=== PATIENT | male | born 1940 | race Caucasian/White ===

== ENCOUNTER → 2017-09-02 09:28 | Outpatient (CLI) | payer MEDICARE, OTHER, SELFPAY ==
--- NOTE | 2017-09-02 09:38 | XR_ITS ---
XR tibia fibula LT 2V CLINICAL INDICATION: ITS.REASON: LEFT LEG INJURY WITH PAIN/SWELLING ORDERING PHYSICIAN: Zain Whitman PATIENT AGE: 76 years Comparison: None FINDINGS: No fracture or dislocation. Surgical clips present along the proximal posterior aspect of the leg. IMPRESSION: No acute finding
== END ==
PROVIDERS: PCP Internal Medicine; Visit Provider Internal Medicine
DX: M79.605 Pain in left leg (principal)
CPT/HCPCS: 73590

== ENCOUNTER → 2021-02-18 13:37 | Outpatient (CLI) | payer MEDICARE, OTHER, SELFPAY ==
[2021-02-18 13:56] LABS: Basophils % 0.5 % (0.1-2.0); Eosinophils # 0.2 K/mm3 (0.0-0.4); Eosinophils % 3.2 % (0.1-12.0); Hematocrit 45.7 % (42.0-52.0); Hemoglobin 15.4 g/dL (14.1-18.0); Lymphocytes # 1.9 K/mm3 (0.7-4.5); Lymphocytes % 26.9 % (10-50); Mean Corpuscular HGB Conc 33.7 g/dL (31.8-35.4); Mean Corpuscular Hemoglobin 31.4 pg (27.0-31.2); Mean Corpuscular Volume 93.2 fl (80-94); Mean Platelet Volume 10.1 fl (7.4-10.4); Monocytes # 0.6 K/mm3 (0.1-1.0); Monocytes % 8.8 % (1.7-9.3); Neutrophils # 4.3 K/mm3 (1.8-7.8); Neutrophils % 60.6 % (37.0-80.0); Platelet Count 242 K/mm3 (142-424); Red Blood Count 4.91 M/mm3 (4.60-6.20); Red Cell Distribution Width 13.6 % (11.5-17.5)
[2021-02-18 15:46] LABS: Alanine Aminotransferase 20 U/L (12-78); Albumin Level 3.8 g/dl (3.5-5.0); Albumin/Globulin Ratio 1.5 (1.1-1.8); Alkaline Phosphatase 50 U/L (38-126); Anion Gap 12.3 mEq/L (5-15); Aspartate Amino Transferase 30 U/L (17-59); Bilirubin,Total 0.6 mg/dl (0.2-1.3); Blood Urea Nitrogen 13 mg/dl (9-20); Calcium 8.8 mg/dl (8.4-10.2); Carbon Dioxide 29 mmol/L (22.0-30.0); Chloride 104 mmol/L (98-107); Chol/HDL Ratio 2.8 (1-3.5); Cholesterol 127 mg/dl (140-200); Estimated Glomerular Filt Rate 93 ml/min (>60); GFR (African American) 113 ML/MIN (>60); Globulin 2.6 g/dL (1.3-3.2); Glucose 104 mg/dl (74-100); HDL Cholesterol 46 mg/dl (40-60); Potassium 4.3 mmoL/L (3.5-5.1); Sodium 141 mmol/L (136-145); Total Protein,Serum 6.4 g/dl (6.3-8.2); Triglycerides 133 mg/dl (30-150); Uric Acid 4.6 mg/dl (3.5-8.5); VLDL Cholesterol 27 mg/dL (0-40)
[2021-02-18 15:57] LABS: Direct LDL Cholesterol 60.41 mg/dL (100-129)
[2021-02-18 16:13] LABS: Prostate Specific Ag Screen < 0.1 ng/ml (0.0-4.0)
== END ==
PROVIDERS: Visit Provider Internal Medicine
DX: I25.10 Atherosclerotic heart disease of native coronary artery without angina pectoris (principal); I10 Essential (primary) hypertension; E78.5 Hyperlipidemia, unspecified; Z87.39 Personal history of other diseases of the musculoskeletal system and connective tissue; Z12.5 Encounter for screening for malignant neoplasm of prostate
CPT/HCPCS: 80053; 80061; 84550; 85025; G0103

== ENCOUNTER → 2021-08-18 14:56 | Outpatient (CLI) | payer MEDICARE, OTHER, SELFPAY ==
[2021-08-18 16:06] LABS: Chloride 104 mmol/L (98-107)
[2021-08-18 16:07] LABS: Potassium 4.3 mmoL/L (3.5-5.1); Sodium 139 mmol/L (136-145)
[2021-08-18 16:09] LABS: Alanine Aminotransferase 20 U/L (12-78); Alkaline Phosphatase 52 U/L (38-126); Aspartate Amino Transferase 31 U/L (17-59); Bilirubin,Total 0.9 mg/dl (0.2-1.3); Blood Urea Nitrogen 15 mg/dl (9-20); Estimated Glomerular Filt Rate 93 ml/min (>60); GFR (African American) 113 ML/MIN (>60)
[2021-08-18 16:10] LABS: Albumin Level 3.6 g/dl (3.5-5.0); Albumin/Globulin Ratio 1.3 (1.1-1.8); Anion Gap 11.3 mEq/L (5-15); Calcium 9.2 mg/dl (8.4-10.2); Carbon Dioxide 28 mmol/L (22.0-30.0); Chol/HDL Ratio 2.9 (1-3.5); Cholesterol 129 mg/dl (140-200); Globulin 2.7 g/dL (1.3-3.2); Glucose 128 mg/dl (74-100); HDL Cholesterol 45 mg/dl (40-60); Total Protein,Serum 6.3 g/dl (6.3-8.2); Triglycerides 118 mg/dl (30-150); VLDL Cholesterol 24 mg/dL (0-40)
[2021-08-18 16:21] LABS: Direct LDL Cholesterol 57.19 mg/dL (100-129)
[2021-08-18 17:28] LABS: Prostate Specific Ag Screen < 0.1 ng/ml (0.0-4.0)
== END ==
PROVIDERS: PCP Internal Medicine; Visit Provider Internal Medicine
DX: I10 Essential (primary) hypertension (principal); E78.5 Hyperlipidemia, unspecified; Z85.46 Personal history of malignant neoplasm of prostate; Z87.39 Personal history of other diseases of the musculoskeletal system and connective tissue; Z12.5 Encounter for screening for malignant neoplasm of prostate
CPT/HCPCS: 80053; 80061; 84550; G0103

== ENCOUNTER → 2022-02-19 13:21 | Outpatient (CLI) | payer MEDICARE, OTHER, SELFPAY ==
[2022-02-19 14:20] LABS: Basophils % 0.4 % (0.1-2.0); Eosinophils # 0.1 K/mm3 (0.0-0.4); Eosinophils % 2.2 % (0.1-12.0); Hematocrit 46.4 % (42.0-52.0); Hemoglobin 15.2 g/dL (14.1-18.0); Lymphocytes # 1.4 K/mm3 (0.7-4.5); Lymphocytes % 20.9 % (10-50); Mean Corpuscular HGB Conc 32.8 g/dL (31.8-35.4); Mean Corpuscular Hemoglobin 31.2 pg (27.0-31.2); Mean Corpuscular Volume 94.9 fl (80-94); Mean Platelet Volume 9.8 fl (7.4-10.4); Monocytes # 0.4 K/mm3 (0.1-1.0); Monocytes % 6.8 % (1.7-9.3); Neutrophils # 4.5 K/mm3 (1.8-7.8); Neutrophils % 69.7 % (37.0-80.0); Platelet Count 216 K/mm3 (142-424); Red Blood Count 4.89 M/mm3 (4.60-6.20); Red Cell Distribution Width 13.4 % (11.5-17.5); White Blood Count 6.5 K/mm3 (4.8-10.8)
[2022-02-19 15:55] LABS: Alanine Aminotransferase 23 U/L (12-78); Albumin Level 3.8 g/dl (3.5-5.0); Albumin/Globulin Ratio 1.5 (1.1-1.8); Alkaline Phosphatase 64 U/L (38-126); Aspartate Amino Transferase 30 U/L (17-59); Bilirubin,Total 0.7 mg/dl (0.2-1.3); Blood Urea Nitrogen 17 mg/dl (9-20); Calcium 9.2 mg/dl (8.4-10.2); Carbon Dioxide 31 mmol/L (22.0-30.0); Chloride 97 mmol/L (98-107); Chol/HDL Ratio 2.9 (1-3.5); Cholesterol 133 mg/dl (140-200); Estimated Glomerular Filt Rate 93 ml/min (>60); GFR (African American) 112 ML/MIN (>60); Globulin 2.6 g/dL (1.3-3.2); Glucose 137 mg/dl (74-100); HDL Cholesterol 46 mg/dl (40-60); Sodium 142 mmol/L (136-145); Total Protein,Serum 6.4 g/dl (6.3-8.2); Triglycerides 101 mg/dl (30-150); Uric Acid 4.2 mg/dl (3.5-8.5); VLDL Cholesterol 20 mg/dL (0-40)
[2022-02-19 17:52] LABS: Direct LDL Cholesterol 65.45 mg/dL (100-129)
[2022-02-22 10:16] LABS: Prostate Specific Ag Screen < 0.1 ng/ml (0.0-4.0)
== END ==
PROVIDERS: PCP Internal Medicine; Visit Provider Internal Medicine
DX: I10 Essential (primary) hypertension (principal); Z12.5 Encounter for screening for malignant neoplasm of prostate
CPT/HCPCS: 80053; 80061; 84550; 85025; G0103

== ENCOUNTER 2022-05-04 20:14 | Emergency (ER) | payer MEDICARE, OTHER, SELFPAY ==
[2022-05-04] VITALS (8 sets, daily range): BP systolic 134–149; BP diastolic 69–77; PULSE 83–92; RESP 12–20; TEMP 37.1–37.6; O2SAT 92–94; BMI 30.8
--- NOTE | 2022-05-04 20:11 | ECG_ITS ---
APPROVED REPORT Exam: Resting ECG HR:88 bpm ECG Measurements Heart Rate 88 AXES WA 236 P 45 QRSd 137 QRS -2 QT 369 T 66 QTc 414 Conclusion SINUS RHYTHM WITH FIRST DEGREE AV BLOCK INTRAVENTRICULAR CONDUCTION DELAY [130+ ms QRS DURATION] ABNORMAL ECG UNCONFIRMED REPORT Electronically signed by : Michael Ruiz MD 05/05/2022 21:34:46
--- NOTE | 2022-05-04 20:17 | CT_ITS ---
PROCEDURE INFORMATION: Exam: CT Abdomen And Pelvis With Contrast Exam date and time: 05/04/2022 9:05 PM Age: 81 years old Clinical indication: Vomiting; Prior surgery; Surgery date: 6+ months; Surgery type: Choleycystectomy; Additional info: Vomitting TECHNIQUE: Imaging protocol: Computed tomography of the abdomen and pelvis with contrast. Radiation optimization: All CT scans at this facility use at least one of these dose optimization techniques: automated exposure control; mA and/or kV adjustment per patient size (includes targeted exams where dose is matched to clinical indication); or iterative reconstruction. Contrast material: ISOVUE; Contrast volume: 75 ml; Contrast route: IV; Other protocol: This patient has received 0 known CTs and 0 known cardiac nuclear medicine studies in the 12 months prior to the current study. COMPARISON: No relevant prior studies available. FINDINGS: Lungs: Small nodules at the lung bases measuring up to 7 mm. Coronary arteries: Coronary artery calcifications. Liver: Normal. No mass. Gallbladder and bile ducts: Status post cholecystectomy. Pancreas: Normal enhancement. No ductal dilation. Spleen: No splenomegaly. Adrenal glands: No mass. Kidneys and ureters: Renal cysts measuring up to 3 cm. No hydronephrosis. Stomach and bowel: Scattered colonic diverticula. Equivocal wall thickening of the ascending colon which is decompressed and not well evaluated. No obstruction. Appendix: No evidence of appendicitis. Intraperitoneal space: No significant fluid collection. No free air. Vasculature: No abdominal aortic aneurysm. Lymph nodes: No enlarged lymph nodes. Urinary bladder: No acute abnormality. Reproductive: Postprocedural changes to the prostate bed. Bones/joints: Median sternotomy wires. Soft tissues: No soft tissue swelling. IMPRESSION: 1. Scattered colonic diverticula. 2. Equivocal wall thickening of the ascending colon which is decompressed and not well evaluated. Cannot entirely exclude short-segment colitis or mucosal mass. 3. Small nodules at the lung bases measuring up to 7 mm. For patients at low risk (minimal or absent history of smoking and of other known risk factors), recommend CT Chest at 3-6 months, then consider CT Chest at 18-24 months. For patients at high risk (history of smoking or of other known risk factors), recommend CT Chest at 3-6 months, then CT Chest at 18-24 months. (Reference: Francoise) References: Francoise Abarca et al. Guidelines for Management of Incidental Pulmonary Nodules Detected on CT Images: From the Fleischner Society 2017. Radiology. 2017;284(1):228-243.
--- NOTE | 2022-05-04 20:17 | XR_ITS ---
PROCEDURE INFORMATION: Exam: XR Chest Exam date and time: 05/04/2022 9:09 PM Age: 81 years old Clinical indication: Other: Vomiting; Additional info: Vomitting TECHNIQUE: Imaging protocol: Radiologic exam of the chest. Views: 1 view. COMPARISON: CT ABDOMEN PELVIS W CON 05/04/2022 9:05 PM FINDINGS: Lungs: No consolidation. Pleural spaces: No pneumothorax. Heart/Mediastinum: No cardiomegaly. Bones/joints: Median sternotomy wires. IMPRESSION: No acute findings.
[2022-05-04 20:28] LABS: Influenza A, PCR Not Detected (NotDetected); Influenza B, PCR Not Detected (NotDetected)
--- NOTE | 2022-05-04 20:28 | HMH.EDNVD ---
Discharge Plan Disposition Patient Disposition: Home, Self-Care Prescriptions Prescriptions: New ondansetron 4 mg tablet,disintegrating 4 mg PO Q8H 5 Days Qty: 15 0RF No Action aspirin [Adult Low Dose Aspirin] 81 mg tablet,delayed release (DR/EC) 81 mg PO ONCE rosuvastatin [Crestor] 10 mg tablet 20 mg PO ONCE lisinopril-hydrochlorothiazide 10-12.5 mg tablet 2 tab PO ONCE latanoprost 0.005 % drops 1 drp ophthalmic (eye) DAILY Label Comments: INSTILL 1 DROP INTO EACH EYE AT BEDTIME Referrals Follow up/Referrals: Zain Whitman MD [Primary Care Provider] - See instructions Clinical Impressions Clinical Impression: COVID-19 Instructions Patient Instructions: DI for Nausea -- Adult, DI for COVID-19 (Suspected or Confirmed ) Discharge ED Provider: Anders (ED)Joaquín Nausea/Vomiting/Diarrhea HPI General Chief complaint: Nausea/Vomiting/Diarrhea Stated complaint: vomitting Time Seen by Provider: 05/04/22 20:28 Mode of Arrival: EMS Source of Information: Patient and Medical Record Limitations: No Limitations Description of Symptoms (Recalled from ER Triage Doc. by RN): pt c/o vomitting and dizziness that startes this morning ` History of Present Illness HPI Narrative: n/v with dizzyness this am exposed to covid-19 complaint: nausea, vomiting and abdominal pain Onset (ago): hour(s) Associated Abdominal Pain: No Severity: moderate Associated symptoms: denies other symptoms Related Data Home Medications Medication Instructions Recorded Confirmed aspirin 81 mg tablet,delayed 81 mg PO ONCE Supplement 10/25/17 05/04/22 release (Adult Low Dose Aspirin) lisinopril 10 2 tab PO ONCE Hypertension 10/24/18 05/04/22 mg-hydrochlorothiazide 12.5 mg tablet rosuvastatin 10 mg tablet (Crestor) 20 mg PO ONCE Cholesterol 10/24/18 05/04/22 latanoprost 0.005 % eye drops 1 drp ophthalmic (eye) DAILY 05/04/22 05/04/22 Glaucoma Previous Rx's Medication Instructions Recorded ondansetron 4 mg disintegrating 4 mg PO Q8H 5 days #15 tabs 05/04/22 tablet Allergies Allergy/AdvReac Type Severity Reaction Status Date / Time PCN (PENICILLIN) Allergy Mild NA-NAUSEA/V Uncoded 10/24/18 10:54 OMITING PFSH PFSH Disclaimer: The information contained in this section may have been updated after the patient was seen, as this information can be updated by other users. Social History Smoking Status: Never smoker alcohol intake: never substance use type: denies use current occupational status: retired Travel in the last 8 weeks: None ROS Obtained: Yes All systems reviewed & no additional complaints except as documented Physical Exam General General appearance: alert Head Head exam: normocephalic Eye Eye exam: Present PERRL and EOMI; Absent scleral icterus ENT ENT exam: Present mucous membranes moist Neck Neck exam: Present trachea midline Respiratory Respiratory exam: Absent respiratory distress Cardiovascular Cardiovascular exam: Present regular rate and systolic murmur Abdominal Exam Abdominal exam: Present soft; Absent tenderness or guarding Extremities Exam Extremities exam: Present full ROM Neurological Exam Neurological exam: Present alert, oriented X3 and CN II-XII intact; Absent motor sensory deficit Psychiatric Psychiatric exam: Present normal affect Skin Skin exam: Absent rash Medical Decision Making Medical Records Medical records reviewed: Yes I reviewed the patient's medical records. [place] Inquiry Pt receiving controlled substance: No Vital Signs: 05/04/22 20:14 05/04/22 20:29 05/04/22 20:24 Temperature 99.7 F H Temperature Source Oral Pulse Rate 88 Pulse Rate [Orthostatic Lying Right] 89 Pulse Rate [Orthostatic Sitting Right] 88 Pulse Rate [Orthostatic Standing] 90 Pulse Rate [Right] 92 H Respiratory Rate 16 12 Blood Pressure 134/73 Blood Pressure [Orthostatic Lying Right Arm] 134/73 Blood Pr
[2022-05-04 20:38] LABS: Basophils % 0.1 % (0.1-2.0); Eosinophils % 0.3 % (0.1-12.0); Hematocrit 44.9 % (42.0-52.0); Hemoglobin 14.9 g/dL (14.1-18.0); Lymphocytes # 0.4 K/mm3 (0.7-4.5); Lymphocytes % 3.6 % (10-50); Mean Corpuscular HGB Conc 33.1 g/dL (31.8-35.4); Mean Corpuscular Hemoglobin 30.9 pg (27.0-31.2); Mean Corpuscular Volume 93.2 fl (80-94); Mean Platelet Volume 9.3 fl (7.4-10.4); Monocytes # 0.3 K/mm3 (0.1-1.0); Monocytes % 2.9 % (1.7-9.3); Neutrophils # 10.2 K/mm3 (1.8-7.8); Platelet Count 254 K/mm3 (142-424); Red Blood Count 4.82 M/mm3 (4.60-6.20); Red Cell Distribution Width 13.5 % (11.5-17.5); White Blood Count 10.9 K/mm3 (4.8-10.8)
[2022-05-04 20:40] LABS: Alanine Aminotransferase 55 U/L (12-78); Albumin Level 4.6 g/dl (3.5-5.0); Albumin/Globulin Ratio 1.3 (1.1-1.8); Alkaline Phosphatase 149 U/L (38-126); Amylase 56 U/L (30-110); Anion Gap 17.1 mEq/L (5-15); Aspartate Amino Transferase 47 U/L (17-59); Bilirubin,Total 1.4 mg/dl (0.2-1.3); Blood Urea Nitrogen 17 mg/dl (9-20); Calcium 9.1 mg/dl (8.4-10.2); Carbon Dioxide 25 mmol/L (22.0-30.0); Chloride 100 mmol/L (98-107); Creatinine Clearance Estimated 80 mL/min (50-200); Estimated Glomerular Filt Rate 81 ml/min (>60); GFR (African American) 98 ML/MIN (>60); Globulin 3.5 g/dL (1.3-3.2); Glucose 212 mg/dl (74-100); Lipase 51 U/L (23-300); Potassium 4.1 mmoL/L (3.5-5.1); Sodium 138 mmol/L (136-145); Total Protein,Serum 8.1 g/dl (6.3-8.2)
[2022-05-04 20:40] LABS: Lactic Acid 1.5 mmol/L (0.7-2.1)
[2022-05-04 20:48] LABS: MANUAL DIFFERENTIAL MANUAL DIFFERENTIAL (MANUAL DIFF)
[2022-05-04 20:54] LABS: Troponin I < 0.01 ng/ml (0.00-0.034)
--- NOTE | 2022-05-04 21:13 | PC.NURSE ---
Pt gone to RAD
[2022-05-04 21:18] LABS: Coronavirus 19, PCR Detected (NotDetected)
--- NOTE | 2022-05-04 21:21 | PC.NURSE ---
Pt back from RAD
--- NOTE | 2022-05-04 21:42 | PC.NURSE ---
Dr. Mcnamara at speaking with pt/family
[2022-05-04 22:04] LABS: Lymphocytes % 7 % (10-50); Monocytes % 2 % (2-9); Neutrophils % 91 % (42-76); Total Cells Counted 100
[2022-05-04 22:05] LABS: Anisocytosis 1+; Platelet Estimate Normal
== END 2022-05-04 21:59 | disposition home or self-care (01) ==
PROVIDERS: Emergency Provider Emergency Medicine; PCP Internal Medicine
DX: U07.1 COVID-19 (principal)
CPT/HCPCS: 71045; 74177; 80053; 82150; 83605; 83690; 84484; 85007; 85025; 87040; 93005; 96361; 96374; 99285; C9803; J2405; Q9967; U0003; U0005

== ENCOUNTER → 2022-05-25 11:39 | Outpatient (CLI) | payer MEDICARE, OTHER, SELFPAY ==
[2022-05-25 15:36] LABS: Hemoglobin A1C 7.1 % (4.0-6.0)
== END ==
PROVIDERS: PCP Internal Medicine; Visit Provider Internal Medicine
DX: R73.01 Impaired fasting glucose (principal); I10 Essential (primary) hypertension
CPT/HCPCS: 83036

== ENCOUNTER → 2022-08-25 12:03 | Outpatient (CLI) | payer MEDICARE, OTHER, SELFPAY ==
[2022-08-25 13:41] LABS: Alanine Aminotransferase 19 U/L (12-78); Albumin Level 3.7 g/dl (3.5-5.0); Albumin/Globulin Ratio 1.5 (1.1-1.8); Alkaline Phosphatase 49 U/L (38-126); Anion Gap 17.2 mEq/L (5-15); Aspartate Amino Transferase 28 U/L (17-59); Bilirubin,Total 0.8 mg/dl (0.2-1.3); Blood Urea Nitrogen 18 mg/dl (9-20); Calcium 8.8 mg/dl (8.4-10.2); Carbon Dioxide 27 mmol/L (22.0-30.0); Chloride 98 mmol/L (98-107); Chol/HDL Ratio 2.3 (1-3.5); Cholesterol 124 mg/dl (140-200); Estimated Glomerular Filt Rate 81 ml/min (>60); GFR (African American) 98 ML/MIN (>60); Globulin 2.5 g/dL (1.3-3.2); Glucose 95 mg/dl (74-100); HDL Cholesterol 53 mg/dl (40-60); Potassium 4.2 mmoL/L (3.5-5.1); Sodium 138 mmol/L (136-145); Total Protein,Serum 6.2 g/dl (6.3-8.2); Triglycerides 96 mg/dl (30-150); Uric Acid 4.5 mg/dl (3.5-8.5); VLDL Cholesterol 19 mg/dL (0-40)
[2022-08-25 13:51] LABS: Direct LDL Cholesterol 60.71 mg/dL (100-129)
[2022-08-25 14:11] LABS: Prostate Specific Ag Screen < 0.1 ng/ml (0.0-4.0)
[2022-08-25 20:07] LABS: Hemoglobin A1C 6.7 % (4.0-6.0)
== END ==
PROVIDERS: PCP Internal Medicine; Visit Provider Internal Medicine
DX: E11.59 Type 2 diabetes mellitus with other circulatory complications (principal); I10 Essential (primary) hypertension; E78.5 Hyperlipidemia, unspecified; Z95.1 Presence of aortocoronary bypass graft; Z87.39 Personal history of other diseases of the musculoskeletal system and connective tissue; Z12.5 Encounter for screening for malignant neoplasm of prostate
CPT/HCPCS: 80053; 80061; 83036; 84550; G0103

== ENCOUNTER → 2022-11-26 12:47 | Outpatient (CLI) | payer MEDICARE, OTHER, SELFPAY | PROVIDERS: PCP Internal Medicine; Visit Provider Internal Medicine | DX: E11.59 Type 2 diabetes mellitus with other circulatory complications (principal) | CPT/HCPCS: 83036 ==

== ENCOUNTER → 2023-03-01 12:47 | Outpatient (CLI) | payer MEDICARE, OTHER, SELFPAY ==
[2023-03-01 14:15] LABS: Alanine Aminotransferase 22 U/L (12-78); Albumin Level 3.8 g/dl (3.5-5.0); Albumin/Globulin Ratio 1.4 (1.1-1.8); Alkaline Phosphatase 49 U/L (38-126); Anion Gap 12.2 mEq/L (5-15); Aspartate Amino Transferase 32 U/L (17-59); Bilirubin,Total 0.8 mg/dl (0.2-1.3); Blood Urea Nitrogen 14 mg/dl (9-20); Calcium 8.3 mg/dl (8.4-10.2); Carbon Dioxide 30 mmol/L (22.0-30.0); Chloride 100 mmol/L (98-107); Chol/HDL Ratio 3.1 (1-3.5); Cholesterol 125 mg/dl (140-200); Estimated Glomerular Filt Rate 72 ml/min (>60); GFR (African American) 87 ML/MIN (>60); Globulin 2.7 g/dL (1.3-3.2); Glucose 104 mg/dl (74-100); HDL Cholesterol 40 mg/dl (40-60); Potassium 4.2 mmoL/L (3.5-5.1); Sodium 138 mmol/L (136-145); Total Protein,Serum 6.5 g/dl (6.3-8.2); Triglycerides 78 mg/dl (30-150); Uric Acid 4.2 mg/dl (3.5-8.5); VLDL Cholesterol 16 mg/dL (0-40)
[2023-03-01 14:20] LABS: Hemoglobin A1C 6.9 % (4.0-6.0)
[2023-03-01 14:26] LABS: Direct LDL Cholesterol 67.72 mg/dL (100-129)
[2023-03-01 14:45] LABS: Prostate Specific Ag Screen < 0.1 ng/ml (0.0-4.0)
== END ==
PROVIDERS: PCP Internal Medicine; Visit Provider Internal Medicine
DX: E11.59 Type 2 diabetes mellitus with other circulatory complications (principal); I25.10 Atherosclerotic heart disease of native coronary artery without angina pectoris; I10 Essential (primary) hypertension; E78.5 Hyperlipidemia, unspecified; Z87.39 Personal history of other diseases of the musculoskeletal system and connective tissue; Z95.1 Presence of aortocoronary bypass graft; Z12.5 Encounter for screening for malignant neoplasm of prostate
CPT/HCPCS: 80053; 80061; 83036; 84550; G0103

== ENCOUNTER 2023-04-12 10:53 | Emergency (ER) | payer MEDICARE, OTHER, SELFPAY ==
[2023-04-12 10:54] VITALS: BP 134/83; PULSE 84; RESP 18; TEMP 36.8; O2SAT 95; BMI 29.2
[2023-04-12 11:31] VITALS: BP 160/80; PULSE 76; O2SAT 96
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
--- NOTE | 2023-04-12 11:49 | XR_ITS ---
FINAL REPORT CLINICAL HISTORY: productive cough, new COMPARISON: May 04, 2022 FINDINGS: The heart size is normal. The mediastinum is within normal limits. There has been prior sternotomy. There is mild atelectasis or scarring in both lungs. There is no pleural effusion. There is no pneumothorax. The bony thorax is intact. IMPRESSION: Mild bilateral atelectasis or scarring. Reviewed, Interpreted and Dictated by Giuseppe Oleary III, MD Transcribed by Leon Post Authenticated and [facility]
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
[2023-04-12 11:55] LABS: Influenza A, PCR Not Detected (NotDetected); Influenza B, PCR Not Detected (NotDetected)
--- NOTE | 2023-04-12 11:56 | ED_ITS ---
Discharge Plan Disposition Patient Disposition: Home, Self-Care Prescriptions Prescriptions: No Action aspirin [Adult Low Dose Aspirin] 81 mg tablet,delayed release (DR/EC) 81 mg PO ONCE rosuvastatin [Crestor] 10 mg tablet 20 mg PO ONCE lisinopril-hydrochlorothiazide 10-12.5 mg tablet 2 tab PO ONCE latanoprost 0.005 % drops 1 drp ophthalmic (eye) DAILY Patient Comments: INSTILL 1 DROP INTO EACH EYE AT BEDTIME ondansetron 4 mg tablet,disintegrating 4 mg PO Q8H 5 Days Qty: 15 0RF Referrals Follow up/Referrals: Zain Whitman MD [Primary Care Provider] - See instructions Activity Restrictions/Add. Instructions Additional Instructions/Restrictions: Call your family doctor to establish care for this visit to the emergency department and schedule follow-up within 48 hours to ensure improvement. If you have any worsening of your condition or any other concerning signs or symptoms, return to the emergency department or your primary care doctor for further evaluation. Clinical Impressions Clinical Impression: COVID-19, Episodic lightheadedness Discharge ED Provider: Valdez Gavin General Adult HPI General Chief complaint: Fall Stated complaint: 03/27 fall at home vomiting dizzy Time Seen by Provider: 04/12/23 10:57 Mode of Arrival: Ambulatory Source of Information: Patient and Spouse Limitations: No Limitations Description of Symptoms (Recalled from ER Triage Doc. by RN): Patient reports he fell at home 03/26/23 walking to go to the bathroom and walked into the door and fell to the ground. Fall was unwitnessed. Patient reports he did not lose consciousness. Spouse reports she came to patient side after the fall. Patient did vomit multiple times the day he fell but has not vomited since. Patient reports episodes of dizziness and being lightheaded on and off since the fall. Patient does have a history of vertigo and reports this is similar but lasts longer. History of Present Illness HPI narrative: Patient fell at home on 1223 and presents today with intermittent dizziness. States the fall was unwitnessed, he does not claim to lose consciousness. Patient did vomit a few days after he fell, no longer vomiting. Has also intermittently been having cough productive of white sputum, no fevers or chills. Denies vision changes, weakness on one side or the other, any stroke symptoms, or any other concerns. Patient doctor's family doctor who told him to come to the emergency department for further evaluation. Related Data Home Medications Medication Instructions Recorded Confirmed aspirin 81 mg tablet,delayed 81 mg PO ONCE Supplement 10/25/17 05/04/22 release (Adult Low Dose Aspirin) lisinopril 10 2 tab PO ONCE Hypertension 10/24/18 05/04/22 mg-hydrochlorothiazide 12.5 mg tablet rosuvastatin 10 mg tablet (Crestor) 20 mg PO ONCE Cholesterol 10/24/18 05/04/22 latanoprost 0.005 % eye drops 1 drp ophthalmic (eye) DAILY 05/04/22 05/04/22 Glaucoma Previous Rx's Medication Instructions Recorded ondansetron 4 mg disintegrating 4 mg PO Q8H 5 days #15 tabs 05/04/22 tablet Allergies Allergy/AdvReac Type Severity Reaction Status Date / Time PCN (PENICILLIN) Allergy Mild NA-NAUSEA/V Uncoded 10/24/18 10:54 OMITING PFSH PFSH Disclaimer: The information contained in this section may have been updated after the patient was seen, as this information can be updated by other users. Social History Smoking Status: Former smoker alcohol intake: never substance use type: denies use current occupational status: retired Travel in the last 8 weeks: None ROS Obtained: Yes All systems reviewed & no additional complaints except as documented Physical Exam General General appearance: alert and in no apparent distress Head Head exam: normocephalic and other (Resolving scab on right sided parietal occipital scalp.) Eye Eye exam: Present normal appearance, PERRL and EOMI ENT ENT exam: Present mucous membranes moist Neck Neck exam: Present normal inspection, full ROM and trachea midline Respiratory Respiratory exam: Present normal lung sounds bilaterally; Absent respiratory distress, wheezes, stridor, accessory muscle use or prolonged expiratory phase Cardiovascular Cardiovascular exam: Present regular rate and normal rhythm Abdominal Exam Abdominal exam: Present soft; Absent distention, tenderness, guarding, rebound or rigidity Extremities Exam Extremities exam: Absent edema Neurological Exam Neurological exam: Present alert, oriented X3, CN II-XII intact and normal gait; Absent motor sensory deficit Skin Skin exam: Present warm and dry; Absent diaphoresis or erythema Medical Decision Making Medical Records Medical records reviewed: Yes I reviewed the patient's medical records. [place] Inquiry Pt receiving controlled substance: No [place] was queried for this patient: No Vital Signs: 04/12/23 10:54 04/12/23 11:31 04/12/23 12:30 Temperature 98.2 F Temperature Source Oral Pulse Rate 76 66 Pulse Rate [Right Brachial] 84 Respiratory Rate 18 Blood Pressure 160/80 H 137/73 Blood Pressure [Right Arm] 134/83 Blood Pressure Mean [Right Arm] 100 Blood Pressure Source [Right Arm] Automatic Cuff Blood Pressure Position [Right Arm] Sitting 02 Sat by Pulse Oximetry 95 96 95 Oxygen Delivery Method Room Air Room Air Room Air Lab Data Lab Results 04/12/23 11:52: SARS-CoV-2 (PCR) Detected A, Influenza A Untype (PCR) Not detected, Influenza Type B (PCR) Not detected Orders (Tests/Meds): ORDERS Category Date Time Status CT cervical spine wo con Stat Cat Scan 04/12/23 11:[address] head/brain wo con Stat Cat Scan 04/12/23 11:49 Completed CXR --portable [XR chest portable] Stat Exams 04/12/23 11:49 Completed Rapid PCR Covid and Flu A/B Stat Lab 04/12/23 11:52 Completed Medical Decision Narrative: Patient fell at home on 1223 and presents today with intermittent dizziness. States the fall was unwitnessed, he does not claim to lose consciousness. Patient did vomit a few days after he fell, no longer vomiting. Has also intermittently been having cough productive of white sputum, no fevers or chills. Denies vision changes, weakness on one side or the other, any stroke symptoms, or any other concerns. Patient doctor's family doctor who told him to come to the emergency department for further evaluation. History was obtained via conversation with patient and . On arrival, patient hemodynamically stable, alert, oriented x4, appropriate, GCS 15, moving all extremities spontaneously, pupils equal and reactive to light. Full physical exam performed and significant for resolving lesion on parieto- occipital scalp, but otherwise normal appearing male. Neurologically intact. Cardiopulmonary exam within normal limits. No lower extremity edema. Pulses equal and symmetric.. Differential includes viral syndrome, dehydration, intracranial bleed, skull fracture, among others. Workup independently interpreted and significant for COVID-positive. Negative CT head and CT C-spine. See radiology read for full review of final results. Independent interpretation of EKG shows EKG with sinus bradycardia 57 beats a minute with no ST or T wave changes concerning for acute ischemia. On reevaluation, patient resting comfortably bed. 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 Because patient at baseline without signs or symptoms of clinical decompensation, deemed appropriate for discharge. Results were relayed to patient who voiced understanding and were agreeable to outpatient management and follow up. At the time of discharge the patient was hemodynamically stable, tolerating PO, and mobilizing appropriately. Critical Care Critical Care Time Critical Care Time: No
--- NOTE | 2023-04-12 11:58 | PC.NURSE ---
Pt gone to RAD via wheelchair
--- NOTE | 2023-04-12 12:07 | PC.NURSE ---
PT returned from RAD
[2023-04-12 12:30] VITALS: BP 137/73; PULSE 66; O2SAT 95
--- NOTE | 2023-04-12 12:33 | ECG_ITS ---
APPROVED REPORT Exam: Resting ECG HR:57 bpm ECG Measurements Heart Rate 57 AXES MA 196 P -3 QRSd 121 QRS -3 QT 422 T 94 QTc 417 Conclusion SINUS BRADYCARDIA MODERATE INTRAVENTRICULAR CONDUCTION DELAY [110+ ms QRS DURATION] MINIMAL ST DEPRESSION [0.025+ mV ST DEPRESSION] ABNORMAL QRS-T ANGLE [QRS-T AXIS DIFFERENCE > 60] ABNORMAL ECG UNCONFIRMED REPORT Electronically signed by : Michael Ruiz MD 04/12/2023 20:37:51
[2023-04-12 12:39] LABS: Coronavirus 19, PCR Detected (NotDetected)
--- NOTE | 2023-04-12 12:40 | PC.NURSE ---
Pt provided with water
--- NOTE | 2023-04-12 13:24 | PC.NURSE ---
Dr. Gavin at BS updating pt on results and POC
[2023-04-12 13:32] VITALS: BP 152/72; PULSE 68; RESP 18; TEMP 36.8; O2SAT 95
== END 2023-04-12 13:33 | disposition home or self-care (01) ==
PROVIDERS: Emergency Provider Emergency Medicine; PCP Internal Medicine
DX: U07.1 COVID-19 (principal); R42 Dizziness and giddiness; R05.9 Cough, unspecified; Z87.891 Personal history of nicotine dependence; W19.XXXA Unspecified fall, initial encounter; R00.1 Bradycardia, unspecified
CPT/HCPCS: 70450; 71045; 72125; 87636; 93005; 99285

== ENCOUNTER 2023-08-30 13:22 | Outpatient (CLI) | payer MEDICARE, OTHER, SELFPAY ==
[2023-08-30 14:38] LABS: Basophils % 0.2 % (0.1-2.0); Eosinophils # 0.2 K/mm3 (0.0-0.4); Eosinophils % 2.2 % (0.1-12.0); Hematocrit 47.4 % (42.0-52.0); Hemoglobin 15.7 g/dL (14.1-18.0); Lymphocytes # 1.6 K/mm3 (0.7-4.5); Lymphocytes % 23.3 % (10-50); Mean Corpuscular Hemoglobin 31.8 pg (27.0-31.2); Mean Corpuscular Volume 96.1 fl (80-94); Mean Platelet Volume 9.3 fl (7.4-10.4); Monocytes # 0.5 K/mm3 (0.1-1.0); Monocytes % 7.6 % (1.7-9.3); Neutrophils # 4.6 K/mm3 (1.8-7.8); Neutrophils % 66.7 % (37.0-80.0); Platelet Count 219 K/mm3 (142-424); Red Blood Count 4.93 M/mm3 (4.60-6.20); White Blood Count 6.8 K/mm3 (4.8-10.8)
[2023-08-30 15:31] LABS: Alanine Aminotransferase 27 U/L (12-78); Albumin Level 3.6 g/dl (3.5-5.0); Albumin/Globulin Ratio 1.3 (1.1-1.8); Alkaline Phosphatase 55 U/L (38-126); Anion Gap 12.9 mEq/L (5-15); Aspartate Amino Transferase 35 U/L (17-59); Blood Urea Nitrogen 16 mg/dl (9-20); Calcium 9.3 mg/dl (8.4-10.2); Carbon Dioxide 31 mmol/L (22.0-30.0); Chloride 100 mmol/L (98-107); Chol/HDL Ratio 2.7 (1-3.5); Cholesterol 148 mg/dl (140-200); Estimated Glomerular Filt Rate 72 ml/min (>60); GFR (African American) 87 ML/MIN (>60); Globulin 2.7 g/dL (1.3-3.2); Glucose 96 mg/dl (74-100); HDL Cholesterol 55 mg/dl (40-60); Potassium 3.9 mmoL/L (3.5-5.1); Sodium 140 mmol/L (136-145); Total Protein,Serum 6.3 g/dl (6.3-8.2); Triglycerides 93 mg/dl (30-150); Uric Acid 4.2 mg/dl (3.5-8.5); VLDL Cholesterol 19 mg/dL (0-40)
[2023-08-30 15:53] LABS: Direct LDL Cholesterol 75.07 mg/dL (100-129)
[2023-08-30 16:01] LABS: Hemoglobin A1C 6.9 % (4.0-6.0)
[2023-08-30 19:36] LABS: Creatinine,Urine Random 236 mg/dL (Not Estab.)
[2023-08-30 19:39] LABS: Microalbumin/Creatinine Ratio 9.2
== END 2023-08-30 23:59 | disposition home or self-care (01) ==
LOC: LAB.DROPOF 13:23
PROVIDERS: PCP Internal Medicine; Visit Provider Internal Medicine
DX: E11.59 Type 2 diabetes mellitus with other circulatory complications (principal); I11.9 Hypertensive heart disease without heart failure; I25.10 Atherosclerotic heart disease of native coronary artery without angina pectoris; E78.5 Hyperlipidemia, unspecified; Z85.46 Personal history of malignant neoplasm of prostate; Z87.39 Personal history of other diseases of the musculoskeletal system and connective tissue; Z85.828 Personal history of other malignant neoplasm of skin; Z95.1 Presence of aortocoronary bypass graft
CPT/HCPCS: 80053; 80061; 82043; 82570; 83036; 84550; 85025

== ENCOUNTER 2024-02-08 14:58 | Outpatient (CLI) | payer MEDICARE, OTHER, SELFPAY ==
--- NOTE | 2024-02-08 15:01 | XR_ITS ---
FINAL REPORT CLINICAL HISTORY: lumbar pain with rt sciatica COMPARISON: None FINDINGS: 3 views of the lumbar spine were obtained. There is no evidence of fracture. There is no malalignment. There is moderate degenerative change with osteophytes. Vascular calcifications are noted. Multiple prostate seed implants are present. IMPRESSION: Moderate degenerative change without acute bony abnormality. Reviewed, Interpreted and Dictated by Giuseppe Oleary III, MD Transcribed by Cielo Wills Authenticated and [facility]
== END 2024-02-08 23:59 | disposition home or self-care (01) ==
LOC: RAD 14:59
PROVIDERS: PCP Internal Medicine; Visit Provider Internal Medicine
DX: M54.41 Lumbago with sciatica, right side (principal)
CPT/HCPCS: 72100

== ENCOUNTER 2024-02-22 11:30 | Outpatient (CLI) | payer MEDICARE, OTHER, SELFPAY ==
[2024-02-22 18:02] LABS: Anion Gap 13.2 mEq/L (5-15); Blood Urea Nitrogen 25 mg/dl (9-20); Calcium 8.7 mg/dl (8.4-10.2); Carbon Dioxide 30 mmol/L (22.0-30.0); Chloride 99 mmol/L (98-107); Estimated Glomerular Filt Rate 64 ml/min (>60); GFR (African American) 77 ML/MIN (>60); Glucose 377 mg/dl (74-100); Potassium 4.2 mmoL/L (3.5-5.1); Sodium 138 mmol/L (136-145)
== END 2024-02-22 23:59 | disposition home or self-care (01) ==
LOC: LAB.DROPOF 02-23 06:48
PROVIDERS: PCP Internal Medicine; Visit Provider Internal Medicine
DX: R60.9 Edema, unspecified (principal)
CPT/HCPCS: 80048

== ENCOUNTER 2024-03-05 10:30 | Outpatient (CLI) | payer MEDICARE, OTHER, SELFPAY ==
[2024-03-05 18:11] LABS: Albumin Level 3.7 g/dl (3.5-5.0); Chloride 105 mmol/L (98-107); Potassium 4.5 mmoL/L (3.5-5.1); Sodium 140 mmol/L (136-145)
[2024-03-05 18:13] LABS: Blood Urea Nitrogen 19 mg/dl (9-20); Estimated Glomerular Filt Rate 71 ml/min (>60); GFR (African American) 86 ML/MIN (>60)
[2024-03-05 18:14] LABS: Alanine Aminotransferase 16 U/L (12-78); Albumin/Globulin Ratio 1.5 (1.1-1.8); Alkaline Phosphatase 54 U/L (38-126); Anion Gap 12.5 mEq/L (5-15); Aspartate Amino Transferase 26 U/L (17-59); Bilirubin,Total 0.7 mg/dl (0.2-1.3); Calcium 8.7 mg/dl (8.4-10.2); Carbon Dioxide 27 mmol/L (22.0-30.0); Chol/HDL Ratio 3.2 (1-3.5); Cholesterol 155 mg/dl (140-200); Globulin 2.5 g/dL (1.3-3.2); Glucose 105 mg/dl (74-100); HDL Cholesterol 48 mg/dl (40-60); Total Protein,Serum 6.2 g/dl (6.3-8.2); Triglycerides 100 mg/dl (30-150); VLDL Cholesterol 20 mg/dL (0-40)
[2024-03-05 18:24] LABS: Hemoglobin A1C 7.7 % (4.0-6.0)
[2024-03-05 18:25] LABS: Direct LDL Cholesterol 80.74 mg/dL (100-129)
[2024-03-05 18:56] LABS: Prostate Specific Ag, Diagnost < 0.064 ng/ml (0.0-4.0)
== END 2024-03-05 23:59 | disposition home or self-care (01) ==
LOC: LAB.DROPOF 03-06 11:53
PROVIDERS: PCP Internal Medicine; Visit Provider Internal Medicine
DX: E78.5 Hyperlipidemia, unspecified (principal); E11.59 Type 2 diabetes mellitus with other circulatory complications; Z85.46 Personal history of malignant neoplasm of prostate; I10 Essential (primary) hypertension; Z87.891 Personal history of nicotine dependence
CPT/HCPCS: 80053; 80061; 83036; 84153

== ENCOUNTER 2024-04-03 09:00 | Outpatient (RCR) | payer MEDICARE, OTHER, SELFPAY ==
--- NOTE | 2024-02-29 11:35 | HMH.PTOPEV ---
PT Outpatient Evaluation Rehab PT Outpatient Evaluation Start: 02/29/24 11:10 Freq: Status: Active Protocol: Document 02/29/24 11:10 FERMIN (Rec: 02/29/24 11:34 FERMIN [id number]) E-signed By Obi Hernandez, PT Outpatient Therapy Subjective History Subjective History Pt is an 83 yom who presents to [facility] outpatient PT with a 6 week history of Low back and R hip pain. He reports about 6 weeks ago, his had fallen to the floor and he was trying to help pick her up. He reports he did not use his legs but pulled up with his back and felt like he had a twinge. He reports that he this pain was fairly constant for about 2 weeks and then let up for a few days. After a few days without pain, he reports he began to have pain into the front of his right hip and thigh. He reports the pain as it its worst when he has to walk longer distances or stand on his feet. He also reports that it is painful when he lays on his left side. The patient reports that he occasionally uses a cane when he walks because he feels like he is not always the most steady on his feet. He reports that he has a very difficult time putting his socks on. New diagnosis of cancer in past 12 No months? Chief Complaint Pain Symptom Type Shooting Symptoms Relieved By OTC Meds Symptoms Aggravated By Standing,Walking,Lifting Prior Functional Limitations None Current Functional Limitations Housework,Dressing,Driving, Sleeping,Squatting,Walking, Stairs,Balance Symptom Description Intermittent Level of pain today (0-10) 5 Pain scale - at its best (0-10) 0 Pain scale - at its worst (0-10) 10 Lumbopelvic Eval Posture Thoracic Spine Posture Standing Position Neutral Lumbar Spine Posture Standing Position Decreased Lordosis Assistive device Assistive Devices None / NA Gait Observation General Gait Pattern Observation Wide Based Gait,Shuffling Step Range of Motion Lumbar Spine ROM Reason Not Measured Within Functional Limits Manual Muscle Test Right Knee Extension Strength Grade 2 Poor Knee Flexion Strength Grade 3- Fair- Hip Flexion Strength Grade 2 Poor Hip Abduction Strength Grade 2 Poor Hip Extension Strength Grade 2 Poor Ankle Dorsiflexion Strength Grade 5 Normal DTR Rt Patellar 2+ Lt Patellar 2+ Rt Gastroc/Soleus 2+ Lt Gastroc/Soleus 2+ Altered Sensation Bilateral Comment Intact Special Tests Lumbar Spine Screen Negative Anterior/Posterior Rib Compression Test Negative Left Rib Inspiration/Expiration Breathing Negative Test Hip Scouring (Quadrant) Test Positive Right Hip Juan Miguel (GRANT) Test Positive Right Reverse Sciatic Nerve Tension Test Positive Right Hip Anastasiya's Test Positive Right Oswestry Index Section 1 Pain Intensity The pain is moderate and does not vary much Section 2 Personal Care (Washing,Dresing) my way of washing or dressing even though it causes some pain Section 3 Lifting lifting heavy weights off the floor, but I can manage light to medium Section 4 Walking I cannot walk more than 1/4 mile without increasing pain Section 5 Sitting I can sit in my favorite chair for as long as I like Section 6 Standing I cannot stand more than 1/2 hour without increasing pain Section 7 Sleeping I get pain in bed, but it does not prevent me from sleeping well Section 8 Social Life My social life is normal but increases the degree of pain Section 9 Traveling I get some pain when traveling , but none of my usual forms of travel m Section 10 Changing Degreee of Pain My pain is neither getting better or worse Score and Risk Level Oswestry Sc 22 Oswestry Risk Level Moderate Disability Miscellaneous Dx PT Eval Objective Objective TUs Pain with Active Hip Flexion and Active hip Abduction on the R Sharpened Romberg: - Unable to initiate tandem stance Outpatient Therapy Assessment Impairments Problems/Impairmments Impaired Strength,Impaired Endurance,Impaired Gait Pattern,Impaired Walking, Impaired Standing,Impaired Stair Climbing,Impaired Balance,Impaired TUG Time, Subjective C/O Pain Prognosis Rehab Potential Fair Comment The patient presents with significant weakness into the R hip and knee, along with pain with active motion of the R hip and knee. Femoral Nerve tensioning recreated the patient's comparable sign. The patient also demonstrates impairments in walking and balance. Skilled PT is indicated for this pt to promote a return to his PLOF, address his current impairments and prevent further injuries. Clinical Impression Consistent with Diagnosis Yes Short Term Goals Number of Weeks 4 Increase Strength Yes: 3/5 Improve Gait Pattern with Assistive Yes: Normalized gait pattern Device with AAD Increase Ability to Walk Yes: 1/2 mile without increasing pain Increase Ability to Stand Yes: 30 minutes without increasing pain Improve Balance Yes: Tandem Stance for 15 s bilaterally Improve Oswestry Score Yes: to mild disability Decrease TUG Time Yes: 17s with AAD Decrease Subjective C/O Pain Yes: 6/10 at worst Patient to be Ind w/ HEP Yes Storage Architect Goals Number of Weeks 8 Increase Strength Yes: 4/5 to R hip and knees Improve Gait Pattern without Assistive Yes: normalized gait pattern Device without AD Increase Ability to Walk Yes: 3/4 mile without increasing pain Increase Ability to Stand Yes: 1 hour without increasing pain Improve Balance Yes: Tandem Stance for 30s bilaterally Improve Oswestry Score Yes: No disability Decrease TUG Time Yes: 14s with AAD Decrease Subjective C/O Pain Yes: 3/10 at worst Patient to be Ind w/ Advanced HEP Yes Outpatient Therapy Plan of Care Treatment Plan May Include Therapeutic Exercise Including Home Yes Exercise Program Manual Therapy Techniques Yes Neuromuscular Re-education Yes Therapeutic Activities to Return to Yes Previous Functional/Work Level Gait Training Yes ADL/Self Care Education Yes Mechanical Traction Yes Dry Needling Yes Thermal Modalities Yes Electrical Stimulation Yes Massage Yes Manual Lymphatic Drainage Yes Frequency Times per week 2 Duration Number of Weeks 8 Addendums This patient is a candidate for social No or vocational rehab? Patient/Guardian verbally acknowledges Yes understanding of treatment program and consents to further treatment? Patient/Guardian verbally acknowledges Yes understanding of diagnosis, prognosis and goals for treatment? Eval Complexity PT Charges 98604 - Moderate Complexity Shoulder/Elbow Eval Shoulder Objective Measurements Elbow Objective Measurements PHYSICIAN CERTIFICATION: I certify the specified therapy services for Jessica Temple are required, authorized, and reviewed every 30 days.
--- NOTE | 2024-03-30 10:33 | HMH.RHREAS ---
Rehab Reassessment Rehab OP Re-assessment Start: 02/29/24 11:10 Freq: Status: Active Protocol: Document 03/30/24 09:08 FERMIN (Rec: 03/30/24 10:33 FERMIN [id number]) E-signed By Obi Hernandez, PT Oswestry Index Section 1 Pain Intensity The pain is severe and does not vary much Section 2 Personal Care (Washing,Dresing) unable to do some washing and dressing without help Section 3 Lifting lifting heavy weights off the floor, but I can manage light to medium Section 4 Walking I cannot walk at all without increasing pain Section 5 Sitting Pain prevents me from sitting for more than 1/2 hour Section 6 Standing I cannot stand more than 1/2 hour without increasing pain Section 7 Sleeping Because of my pain, my normal night's sleep is less than 4 hours Section 8 Social Life Pain has restricted my social life to my home Section 9 Traveling Pain restricts me to short necessary journeys under 30 minutes Section 10 Changing Degreee of Pain My pain seems to be getting better, but improvement is slow Score and Risk Level Oswestry Sc 37 Oswestry Risk Level Completely Disabled Rehab Re-assessment Subjective Subjective The patient reports that after the past week, he seems to be having more pain than he was prior to beginning Physical Therapy. He reports that he made significant progress during the first three weeks of therapy and was having much less pain into his R leg and was walking better without a cane. He then reports that one week ago, March 23, he woke up in the night with a new pain into his L leg that seemed to stay between his thigh and his calf. He reports that this pain was worse than the pain that he had been having on his R leg at any point. This date, he reports that the pain in his L leg is still there but has subsided substantially. He reports that his R leg is hurting more than it had been but he has improved some compared to earlier this week. He reports that he has been using a walker almost exclusively. He reports that he wants to continue doing therapy because he had made a lot of progress prior to this setback. The pt reports that his current pain is a 6/10, but the pain in his R leg often reaches a 9-10 /10. His biggest difficulties now are walking, getting out up/down from a chair, getting into/out of the car and putting on socks/shoes. Objective Objective Notes RILEY: 37 (worsened from 22) Strength: Hip Flexion- 3/5 R 4/5 L Hip Abduction - 3/5 R 3+/5 L Knee Extension - 4/5 B Knee Flexion - 4/5 B Gait: Antalgic Gait pattern with decreased WB on the RLE and shortened step pattern BL. Initial steps upon rising are more shortened. Esther, velocity and step length all improve after a few steps. Using a FWW. TUs with FWW Tandem Stance: 8s R 10s L Assessment Progress Assessment No Progress Assessment Notes Pt presents for reassessment visit. Pt was initially making significant progress with pain, ambulation, gait mechanics and balance. The pt recently had a setback with a new pain into his L leg beginning one week ago. This pain has mostly subsided in his L leg, however, the pain and function of his R leg has regressed. He demonstrated improvements in exercise tolerance this date, as compared to the previous visit , but still presents below the prior two weeks. The pt would continue to benefit from skilled PT. Patient goals met ST,[address]-8 LTG 1-9 Plan Plan Continue as per initial POC Frequency of Therapy 2/week Duration of therapy 4 weeks Time and Billing Re-Eval Time 15 Re-Eval Billing Units 0 Charge for PT reassessment? No PHYSICIAN CERTIFICATION: I certify the specified therapy services for Jessica Temple are required, authorized, and reviewed every 30 days.
== END 2024-04-03 23:59 | disposition home or self-care (01) ==
LOC: PT 09:00
PROVIDERS: Visit Provider Internal Medicine
DX: M54.41 Lumbago with sciatica, right side (principal); M51.369 Other intervertebral disc degeneration, lumbar region without mention of lumbar back pain or lower extremity pain; M47.817 Spondylosis without myelopathy or radiculopathy, lumbosacral region
CPT/HCPCS: 97010; 97110; 97163; 97530

== ENCOUNTER 2024-04-26 12:34 | Outpatient (CLI) | payer MEDICARE, OTHER, SELFPAY ==
--- NOTE | 2024-04-26 12:35 | MR_ITS ---
FINAL REPORT CLINICAL HISTORY: Lumbago with right sciatica, RIGHT THIGH PAIN COMPARISON: None FINDINGS: Multiplanar MR imaging of the lumbar spine was performed without contrast. On the sagittal T2-weighted images, there is abnormal decreased signal throughout the lumbar discs. The vertebrae are of normal height. The vertebral alignment is normal. T12-L1: There is no significant canal stenosis or neural foraminal narrowing. L1-2: There is no significant canal stenosis or neural foraminal narrowing. L2-3: There is a mild annular bulge, with a small midline annular tear, and mild bilateral neural foraminal narrowing. L3-4: A mild annular bulge is present with bilateral facet hypertrophy, greater on the right than on the left. There is mild to moderate canal stenosis. L4-5: A mild annular bulge is present with mild to moderate bilateral neural foraminal narrowing and mild to moderate canal stenosis. Bilateral facet hypertrophy is also present at this level. L5-S1: There is no significant canal stenosis or neural foraminal narrowing. IMPRESSION: Multilevel lumbar degenerative changes present most severe at the L3-4 and L4-5 levels with mild to moderate canal stenosis and neural foraminal narrowing. Reviewed, Interpreted and Dictated by Cory Calabrese MD Transcribed by Paloma Harper Authenticated and [facility]
== END 2024-04-26 23:59 | disposition home or self-care (01) ==
LOC: RAD 12:35
PROVIDERS: PCP Internal Medicine; Visit Provider Internal Medicine
DX: M54.41 Lumbago with sciatica, right side (principal); M51.369 Other intervertebral disc degeneration, lumbar region without mention of lumbar back pain or lower extremity pain; M47.817 Spondylosis without myelopathy or radiculopathy, lumbosacral region
CPT/HCPCS: 72148

== ENCOUNTER 2024-04-27 09:00 | Outpatient (RCR) | payer MEDICARE, OTHER, SELFPAY | END 2024-04-27 23:59 | disposition home or self-care (01) | LOC: PT 09:00 | PROVIDERS: Visit Provider Internal Medicine | DX: M47.817 Spondylosis without myelopathy or radiculopathy, lumbosacral region (principal); M54.41 Lumbago with sciatica, right side; M51.369 Other intervertebral disc degeneration, lumbar region without mention of lumbar back pain or lower extremity pain | CPT/HCPCS: 97010; 97110; 97530 ==

== ENCOUNTER 2024-05-04 08:30 | Outpatient (CLI) | payer MEDICARE, OTHER, SELFPAY ==
--- NOTE | 2024-05-04 08:31 | MR_ITS ---
FINAL REPORT CLINICAL HISTORY: Persisting right leg pain from thigh to knee COMPARISON: None FINDINGS: Multiplanar MR imaging of the right hip was performed without contrast. On the coronal images, there is significant narrowing of the hip joint spaces bilaterally consistent with osteoarthritis. The femoral heads have normal smooth contours. There is no evidence of marrow edema. Small osteochondral lesions are seen over the articular surface of the acetabuli. An asymmetric right joint effusion is noted. There is no evidence of avascular necrosis. No labral tear is identified. No significant joint effusion is seen. Fluid is seen within the right iliopsoas tendon sheath. There is a small amount of fluid tracking along the anterior margin of the right iliac wing deep to the iliopsoas muscle. Fluid and edema is seen within the anterior right gluteal musculature. No soft tissue mass or cyst is identified. IMPRESSION: Moderately advanced joint space narrowing bilaterally consistent with osteoarthritis. Iliopsoas tendinitis with fluid tracking along the anterior margin of the right iliac wing and associated edema within the anterior gluteal musculature. Reviewed, Interpreted and Dictated by Cory Calabrese MD Transcribed by Cielo Wills Authenticated and [facility]
== END 2024-05-04 23:59 | disposition home or self-care (01) ==
LOC: RAD 08:31
PROVIDERS: PCP Internal Medicine; Visit Provider Internal Medicine
DX: M54.31 Sciatica, right side (principal); M25.551 Pain in right hip
CPT/HCPCS: 73721

== ENCOUNTER 2024-09-11 21:07 | Emergency (ER) | payer MEDICARE, OTHER, SELFPAY ==
[2024-09-11 21:16] VITALS: BP 182/82; PULSE 63; RESP 20; TEMP 36.9; O2SAT 98; BMI 30.1
--- NOTE | 2024-09-11 21:20 | CT_ITS ---
PROCEDURE INFORMATION: Exam: CT Abdomen And Pelvis With Contrast Exam date and time: 09/11/2024 10:08 PM Age: 83 years old Clinical indication: Nausea and vomiting; Additional info: N/v TECHNIQUE: Imaging protocol: Computed tomography of the abdomen and pelvis with contrast. Radiation optimization: All CT scans at this facility use at least one of these dose optimization techniques: automated exposure control; mA and/or kV adjustment per patient size (includes targeted exams where dose is matched to clinical indication); or iterative reconstruction. Contrast material: ISOVUE; Contrast volume: 75 ml; Contrast route: IV; COMPARISON: CR XR CHEST PORTABLE 09/11/2024 9:53 PM FINDINGS: Lungs: There are atelectatic changes at the lung bases right greater than left. A small calcified granuloma in present at the left lung base. Heart: The heart is top-normal to mildly enlarged. Liver: Normal. No mass. Gallbladder and biliary ducts: The gallbladder is absent. There is no biliary ductal dilation. Pancreas: Normal. No ductal dilation. Spleen: Normal. No splenomegaly. Adrenal glands: Normal. No mass. Kidneys and ureters: No hydronephrosis or stone disease. 2.7 cm cortical cyst anterior right kidney. Other subcentimeter cortical hypodensities of the right kidney are too small to fully characterize. Stomach and bowel: There are scattered colonic diverticuli without acute inflammation. No obstruction. No mucosal thickening. Appendix: No evidence of appendicitis. Intraperitoneal space: Unremarkable. No free air. No significant fluid collection. Vasculature: Moderate calcific atherosclerotic disease without aneurysm or dissection. Lymph nodes: Unremarkable. No enlarged lymph nodes. Urinary bladder: Unremarkable as visualized. Reproductive: Prostate seed implants are noted. Bones/joints: There are moderate degenerative changes of the spine. No acute fracture. Soft tissues: Small fat containing right inguinal hernia. IMPRESSION: 1. There is no acute process evident within the abdomen or pelvis. 2. Nonurgent findings as noted. COMMENTS: Consistent with the [employer]'s Incidental Findings Committee white paper (J Am Alfredo Radiol 2018): Any incidental renal lesion less than 1 cm or classified as too small to characterize, or any incidental cystic renal lesion characterized as simple-appearing, is likely benign. No follow-up imaging is recommended for these lesions per consensus recommendations based on imaging criteria.
--- NOTE | 2024-09-11 21:20 | XR_ITS ---
PROCEDURE INFORMATION: Exam: XR Chest Exam date and time: 09/11/2024 9:53 PM Age: 83 years old Clinical indication: Shortness of breath; Additional info: Short of breath TECHNIQUE: Imaging protocol: Radiologic exam of the chest. Views: 1 view. COMPARISON: CR XR CHEST PORTABLE 05/04/2022 9:09 PM FINDINGS: Lungs: There are few linear densities within the left mid and lower lung zone either representing subsegmental atelectasis or scarring. No consolidation. Pleural spaces: Unremarkable. No pleural effusion. No pneumothorax. Heart/Mediastinum: There is evidence of prior CABG. The heart is not enlarged. Vasculature: Unremarkable. Bones/joints: Unremarkable. IMPRESSION: Left mid to lower lung zone subsegmental atelectasis and/or scarring.
--- NOTE | 2024-09-11 21:23 | HMH.EDGENADL ---
Discharge Plan Disposition Patient Disposition: Home, Self-Care Condition: Good Prescriptions Prescriptions: New ondansetron 4 mg tablet,disintegrating 4 mg PO Q6H PRN (Reason: nausea and vomiting) Qty: 12 0RF No Action rosuvastatin 20 mg tablet 20 mg PO DAILY Patient Comments: TAKE 1 TABLET BY MOUTH ONCE DAILY AT BEDTIME FOR 90 DAYS furosemide 40 mg tablet 40 mg PO DAILY PRN (Reason: edema) Qty: 30 2RF potassium chloride 10 mEq tablet extended release 10 meq PO DAILY PRN (Reason: Take with as needed furosemide) Qty: 30 2RF prednisone 10 mg tablet 10 mg PO DIRECTED Qty: 32 0RF Rx Instructions: see taper instructions: 4 tabs po qam x 5 days; 3 tabs po qam x 2 days; 2 tabs po qam x 2 days; 1 tab po qam x 2 days; then stop aspirin [Adult Low Dose Aspirin] 81 mg tablet,delayed release (DR/EC) 81 mg PO ONCE nitroglycerin 0.4 mg tablet, sublingual 0.4 mg sublingual Q5-15M PRN (Reason: chest pain) Qty: 25 0RF Rx Instructions: do not exceed 3 doses per episode lisinopril 20 mg tablet 20 mg PO DAILY Qty: 90 3RF latanoprost 0.005 % drops 1 drp ophthalmic (eye) DAILY Patient Comments: INSTILL 1 DROP INTO EACH EYE AT BEDTIME ondansetron 4 mg tablet,disintegrating 4 mg PO Q8H 5 Days Qty: 15 0RF Activity Restrictions/Add. Instructions Additional Instructions/Restrictions: Stay well-hydrated. Follow-up the incidental renal cysts found on your CT scan with your primary care provider. Please follow up with your primary care provider in 2-3 days. Please return to ED if your symptoms worsen, change in location, change in severity, new symptoms develop or if you become concerned for your health. Clinical Impressions Clinical Impression: Nausea & vomiting, Renal cyst Instructions Patient Instructions: DI for Diarrhea and Traveler's Diarrhea -- Adult, DI for Diarrhea and Traveler's Diarrhea -- Child, DI for Nausea -- Adult, DI for Nausea -- Child Print Language Print Language: Tongan Discharge ED Provider: Dagoberto Solis Adult HPI <Opal Arora (ED), CRACKING UNIT OPERATOR - Last Filed: 09/11/24 21:50> General Chief complaint: Nausea/Vomiting/Diarrhea Stated complaint: Vomitting Time Seen by Provider: 09/11/24 21:13 Mode of Arrival: EMS Source of Information: Patient Description of Symptoms (Recalled from ER Triage Doc. by RN): pt reports he was out mowing and when he came inside to make dinner he began feeling nauseated and vomitted for approximately 1 hour. pt reports he hasnt drank much fluids today History of Present Illness HPI narrative: This is an 83-year-old male who presents to the ED today after he was outside mowing. He came in and was unable to eat initially. He then he did have a hamburger and try to eat it and he started vomiting immediately. He tells me that he vomited for about an hour. He has no chest pain no shortness of breath no nausea at this time. 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 He has had gallbladder surgery. He says he has had no MIs. He is on Crestor and lisinopril. Related Data Home Medications ?Medication ?Instructions ?Recorded ?Confirmed aspirin 81 mg tablet,delayed 81 mg PO ONCE Supplement 10/25/17 06/04/24 release (Adult Low Dose Aspirin) latanoprost 0.005 % eye drops 1 drp ophthalmic (eye) DAILY 05/04/22 06/04/24 Glaucoma rosuvastatin 20 mg tablet 20 mg PO DAILY 02/08/24 06/04/24 Previous Rx's ?Medication ?Instructions ?Recorded ondansetron 4 mg disintegrating 4 mg PO Q8H 5 days #15 tabs 05/04/22 tablet furosemide 40 mg tablet 40 mg PO DAILY PRN edema #30 tabs 02/08/24 potassium chloride 10 mEq 10 meq PO DAILY PRN Take with as 02/08/24 tablet,extended release needed furosemide #30 tabs prednisone 10 mg tablet 10 mg PO DIRECTED #32 tabs 02/08/24 nitroglycerin 0.4 mg sublingual 0.4 mg sublingual Q5-15M PRN chest 02/22/24 tablet pain #25 tabs lisinopril 20 mg tablet 20 mg PO DAILY #90 tabs 03/23/24 ondansetron 4 mg disintegrating 4 mg PO Q6H PRN nausea and 09/11/24 tablet vomiting #12 tabs Allergies Allergy/AdvReac Type Severity Reaction Status Date / Time PCN (PENICILLIN) AdvReac Mild NA-NAUSEA/V Uncoded 02/08/24 14:29 OMITING PFSH <Opal Arora (ED), CRACKING UNIT OPERATOR - Last Filed: 09/11/24 21:50> PFSH Disclaimer: The information contained in this section may have been updated after the patient was seen, as this information can be updated by other users. Social History Smoking Status: Never smoker alcohol intake: never substance use type: denies use current occupational status: retired Travel in the last 8 weeks?: None Have you lived/traveled outside US in past 30 days?: No Contact w/someone who lives/traveled outside US past 30 days?: No Exposure to someone with infectious disease in past 14 days?: No Do you have a fever (greater than 100.4 F or 38 C)?: No Have you tested positive for COVID-19?: No Exposed to someone with COVID-19 in past 14 days?: No Do you have a sore throat?: No Do you have a cough?: No Do you have any weakness?: No Do you have any diarrhea?: No Are you experiencing any unusual bleeding?: No Do you have any muscle aches/pain?: No Do you have any abdominal pain?: No Are you experiencing loss of taste or smell?: No Other Medical History Have you received the Flu Vaccine for this season: Yes Have you received the Pneumonia Vaccine: Yes <Opal Arora (ED), CRACKING UNIT OPERATOR - Last Filed: 09/11/24 21:50> ROS Obtained: Yes Systems reviewed as appropriate & no additional complaints except as documented Constitutional Constitutional: Reports as per HPI Physical Exam <Opal Arora (ED), CRACKING UNIT OPERATOR - Last Filed: 09/11/24 21:50> General General appearance: alert Head Head exam: atraumatic and normocephalic Eye Eye exam: Present PERRL and EOMI ENT ENT exam: Present normal oropharynx and mucous membranes moist Neck Neck exam: Present full ROM and trachea midline Respiratory Respiratory exam: Present normal lung sounds bilaterally Cardiovascular Cardiovascular exam: Present regular rate, normal rhythm, normal heart sounds, +S1 and +S2 Abdominal Exam Abdominal exam: Present soft and normal bowel sounds exam: Present normal inspection Extremities Exam Extremities exam: Present full ROM, normal capillary refill, edema and joint swelling Neurological Exam Neurological exam: Present alert, oriented X3 and normal gait Skin Skin exam: Present warm, dry and intact Medical Decision Making <Opal Arora (ED), CRACKING UNIT OPERATOR - Last Filed: 09/11/24 21:50> Medical Records Screening: Per USPSTF and CDC recommendations, given the prevalence of disease in our region, it is our hospital?s policy to screen for HIV and viral Hepatitis for all patients aged 18 and over and those with ongoing risk factors. [place] Inquiry Pt receiving controlled substance: No [place] was queried for this patient: No Vital Signs: 09/11/24 21:16 Temperature 98.4 F Temperature Source Temporal Artery Scan Pulse Rate [Right] 63 Respiratory Rate 20 Blood Pressure [Right Arm] 182/82 H Blood Pressure Mean [Right Arm] 115 02 Sat by Pulse Oximetry 98 Oxygen Delivery Method Room Air Lab Data Lab Results 09/11/24 21:30: WBC 8.9, RBC 5.06, Hgb 14.7, Hct 45.6, MCV 90.1, MCH 29.1, MCHC 32.2, RDW 14.0, Plt Count 196, MPV 11.4 H, Neut % (Auto) 79.8, Lymph % (Auto) 10.2, [place] % (Auto) 8.9, Eos % (Auto) 0.6, Baso % (Auto) 0.2, Neut # (Auto) 7.1, Lymph # (Auto) 0.9, [place] # (Auto) 0.8, Eos # (Auto) 0.1, Baso # (Auto) 0.0, Sodium 135 L, Potassium 3.6, Chloride 101, Carbon Dioxide 27, Anion Gap 10.6, BUN 18, Creatinine 0.90, Estimated Creat Clear 75, Estimated GFR 81, Est GFR ( Amer) 98, Glucose 143 H, Calcium 9.1, Magnesium 1.7, Total Bilirubin 1.1, AST 24, ALT 15, Alkaline Phosphatase 55, Troponin I < 0.01, NT-Pro-B Natriuret Pep 858 H, Total Protein 7.3, Albumin 4.2, Globulin 3.1, Albumin/Globulin Ratio 1.4, Lipase 41 09/11/24 21:30 09/11/24 21:30 Orders (Tests/Meds): ED MEDICATIONS Generic Name Dose Route Start Last Admin Trade Name Freq PRN Reason Stop Dose Admin Sodium Chloride 8 ml 09/11/24 21:20 09/11/24 21:50 Sodium Chloride 0.9% 10ml Vial IV 10/11/24 21:19 8 ml NEEDED PRN Administration dilute pepcid Sodium Chloride 10 ml 09/11/24 22:08 09/11/24 22:08 Sodium Chloride 0.9% 10ml Syr (Rad Only) IV 10/11/24 22:07 10 ml NEEDED PRN Administration Maintain IV Site Discontinued Medications Generic Name Dose Route Start Last Admin Trade Name Freq PRN Reason Stop Dose Admin Famotidine 20 mg 09/11/24 21:20 09/11/24 21:48 Famotidine 20mg/2ml Vial IV 09/11/24 21:21 20 mg ONCE ONE Administration Sodium Chloride 1,000 mls @ 999 mls/hr 09/11/24 21:20 09/11/24 21:50 Sod Chlor 0.9% 1000ml Bag IV 09/11/24 22:20 999 mls/hr .Q1H1M ONE Administration Iopamidol 75 ml 09/11/24 22:08 09/11/24 22:08 Iopamidol-370 (76%);100ml Bottle IV 09/11/24 22:09 75 ml ONCE ONE Administration Ondansetron HCl 4 mg 09/11/24 21:21 09/11/24 21:48 Ondansetron 4mg/2ml Vial IV 09/11/24 21:22 4 mg ONCE ONE Administration ORDERS Category Date Time Status CT abdomen pelvis w con Stat Cat Scan 09/11/24 21:20 Completed Chest XR -- portable [XR chest portable] Stat Exams 09/11/24 21:20 Completed BNP [NT Pro Brain Natriuretic Pep.] Stat Lab 09/11/24 21:30 Completed CBC [Complete Blood Count Auto Diff] Stat Lab 09/11/24 21:30 Completed Comprehensive Metabolic Panel Stat Lab 09/11/24 21:30 Completed Lipase Stat Lab 09/11/24 21:30 Completed Magnesium Stat Lab 09/11/24 21:30 Completed Mini Respiratory Panel Stat Lab 09/11/24 21:20 Ordered Trop I [Troponin I] Stat Lab 09/11/24 21:30 Completed Troponin I Q3H Lab 09/12/24 00:30 Ordered Troponin I Q3H Lab 09/12/24 03:30 Ordered Medical Decision Narrative: patient is a 83-year-old male presenting to the emergency department for evaluation of vomiting for an hour after he mowed all day. He does have bilateral lower extremity edema but says he does take medicine for this. So this is chronic.. Patient is hemodynamically stable and nontoxic-appearing upon arrival, afebrile. Differential diagnosis includes viral illness, dehydration, hypertension, NSTEMI, STEMI, among others. Workup will be conducted with hematologic labs, specific imaging, provocative tests. Initial inventions include crystalloid bolus, analgesics. Discussed this patient with Dr. Solis who will take over care. <Dagoberto Solis MD - Last Filed: 09/11/24 23:45> Vital Signs: 09/11/24 21:16 Temperature 98.4 F Temperature Source Temporal Artery Scan Pulse Rate [Right] 63 Respiratory Rate 20 Blood Pressure [Right Arm] 182/82 H Blood Pressure Mean [Right Arm] 115 02 Sat by Pulse Oximetry 98 Oxygen Delivery Method Room Air Lab Data Lab Results 09/11/24 21:30: WBC 8.9, RBC 5.06, Hgb 14.7, Hct 45.6, MCV 90.1, MCH 29.1, MCHC 32.2, RDW 14.0, Plt Count 196, MPV 11.4 H, Neut % (Auto) 79.8, Lymph % (Auto) 10.2, [place] % (Auto) 8.9, Eos % (Auto) 0.6, Baso % (Auto) 0.2, Neut # (Auto) 7.1, Lymph # (Auto) 0.9, [place] # (Auto) 0.8, Eos # (Auto) 0.1, Baso # (Auto) 0.0, Sodium 135 L, Potassium 3.6, Chloride 101, Carbon Dioxide 27, Anion Gap 10.6, BUN 18, Creatinine 0.90, Estimated Creat Clear 75, Estimated GFR 81, Est GFR ( Amer) 98, Glucose 143 H, Calcium 9.1, Magnesium 1.7, Total Bilirubin 1.1, AST 24, ALT 15, Alkaline Phosphatase 55, Troponin I < 0.01, NT-Pro-B Natriuret Pep 858 H, Total Protein 7.3, Albumin 4.2, Globulin 3.1, Albumin/Globulin Ratio 1.4, Lipase 41 Orders (Tests/Meds): ED MEDICATIONS Generic Name Dose Route Start Last Admin Trade Name Freq PRN Reason Stop Dose Admin Sodium Chloride 8 ml 09/11/24 21:20 09/11/24 21:50 Sodium Chloride 0.9% 10ml Vial IV 10/11/24 21:19 8 ml NEEDED PRN Administration dilute pepcid Sodium Chloride 10 ml 09/11/24 22:08 09/11/24 22:08 Sodium Chloride 0.9% 10ml Syr (Rad Only) IV 10/11/24 22:07 10 ml NEEDED PRN Administration Maintain IV Site Discontinued Medications Generic Name Dose Route Start Last Admin Trade Name Freq PRN Reason Stop Dose Admin Famotidine 20 mg 09/11/24 21:20 09/11/24 21:48 Famotidine 20mg/2ml Vial IV 09/11/24 21:21 20 mg ONCE ONE Administration Sodium Chloride 1,000 mls @ 999 mls/hr 09/11/24 21:20 09/11/24 21:50 Sod Chlor 0.9% 1000ml Bag IV 09/11/24 22:20 999 mls/hr .Q1H1M ONE Administration Iopamidol 75 ml 09/11/24 22:08 09/11/24 22:08 Iopamidol-370 (76%);100ml Bottle IV 09/11/24 22:09 75 ml ONCE ONE Administration Ondansetron HCl 4 mg 09/11/24 21:21 09/11/24 21:48 Ondansetron 4mg/2ml Vial IV 09/11/24 21:22 4 mg ONCE ONE Administration ORDERS Category Date Time Status CT abdomen pelvis w con Stat Cat Scan 09/11/24 21:20 Completed Chest XR -- portable [XR chest portable] Stat Exams 09/11/24 21:20 Completed BNP [NT Pro Brain Natriuretic Pep.] Stat Lab 09/11/24 21:30 Completed CBC [Complete Blood Count Auto Diff] Stat Lab 09/11/24 21:30 Completed Comprehensive Metabolic Panel Stat Lab 09/11/24 21:30 Completed Lipase Stat Lab 09/11/24 21:30 Completed Magnesium Stat Lab 09/11/24 21:30 Completed Mini Respiratory Panel Stat Lab 09/11/24 21:20 Ordered Trop I [Troponin I] Stat Lab 09/11/24 21:30 Completed Troponin I Q3H Lab 09/12/24 00:30 Ordered Troponin I Q3H Lab 09/12/24 03:30 Ordered Medical Decision Narrative: patient is a 83-year-old male presenting to the emergency department for evaluation of vomiting for an hour after he mowed all day. He does have bilateral lower extremity edema but says he does take medicine for this. So this is chronic.. Patient is hemodynamically stable and nontoxic-appearing upon arrival, afebrile. Differential diagnosis includes viral illness, dehydration, hypertension, NSTEMI, STEMI, among others. Workup will be conducted with hematologic labs, specific imaging, provocative tests. Initial inventions include crystalloid bolus, analgesics. Discussed this patient with Dr. Solis who will take over care. On reassessment, patient reports improvement of symptoms. He is tolerating oral intake and ambulatory about the emergency department. His symptoms have completely resolved. I reviewed CT imaging which independently interpreted to demonstrate no acute process and this confirmed the radiologist final read. Patient made aware of his renal cyst and will follow-up outpatient. Suspect viral gastroenteritis is most likely given vomiting that has now resolved. No leukocytosis no evidence of anemia electrolytes grossly within normal limits troponin negative. BNP only mildly elevated 858, no signs or symptoms consistent with heart failure apart from mild bilateral edema which is chronic. After fluid resuscitation and multimodal control, he is feels comfortable with going home. Strict precautions discussed all questions answered pt amenable to plan and and discharge Critical Care <Opal Arora (ED), CRACKING UNIT OPERATOR - Last Filed: 09/11/24 21:50> Critical Care Time Critical Care Time: No
[2024-09-11 21:30] VITALS: BP 190/92; PULSE 71; O2SAT 93
--- OUTSIDE RECORDS SUMMARY | 2024-09-11 21:31 | XMS_ITS | Encounter Summary ---
Author Organization [facility] Address [address] [place] [address] Care Team Providers Care Volleyball Assembler Name Role Phone Randi Rodriguez MD Primary Care Provider [phone] Reason for Visit * Reason Onset Date Comments Med Refill 07/16/2024 Encounter Details Date Type Department Care Team (Late st Contact Info) Description 07/16/2024 [address] [place] [address] Randi Rodriguez MD [address] [place] [phone] Social History Tobacco Use Types Packs/Day Years Used Date Smoking Tobacco: Never Passive Smoke Exposure: Never Smokeless Tobacco: Never PHQ-2 Answer Date Recorded Patient Health Questionnaire-2 Score 0 06/26/2024 PHQ-9 Answer Date Recorded Patient Health Questionnaire-9 Score 0 06/26/2024 Sex and Gender Information Value Date Recorded Sex Assigned at Not on file Legal Sex Male 6:32 PM EDT Gender Identity Not on file Sexual Orientation Not on file documented as of this encounter Plan of Treatment Upcoming Encounters Date Type Department Care Team (Late st Contact Info) Description 09/18/2024 9:40 AM EDT Office Visit [facility] [address] [phone] Randi Rodriguez MD [address] [place] [address] documented as of this encounter Visit Diagnoses Not on filedocumented in this encounter Additional Health Concerns Assessment Noted Time PHQ-9 Depression Total Score: 0 06/27/19 8:57 AM EDT A fall risk assessment has been complete d for the patient 06/26/2024 8:57 AM EDT A Body Mass Index follow-up plan has been documented for the patient 06/26/2024 1:28 PM EDT documented as of this encounter Care Teams Volleyball Assembler Relationship Specialty Start Date End Date Randi Rodriguez MD [address] [phone] PCP - General Family Medicine 06/26/24 documented as of this encounter
--- OUTSIDE RECORDS SUMMARY | 2024-09-11 21:31 | XMS_ITS | Clinical Summary ---
Author Organization [facility] Address [address] [place] [place] [address] Care Team Providers Care Wire Bender Hand Name Role Phone Randi Rodriguez MD Primary Care Provider [phone] Allergies Active Allergy Reactions Criticality Noted Date Comments Penicillin G Other - please docum ent in the comment field Low 04/30/2011 patient states upset stomach and MD would never give to him again, but does not remember having a rash to it Medications lisinopril 20 MG tablet Take 1 tablet (20 mg) by mouth daily. 06/20/2024 Active aspirin 81 MG EC tablet Take 1 tablet (81 mg) by mouth daily. Active omega-3 (Fish Oil) 1000 MG capsule Take 2 capsules (2,000 mg) by mouth in the morning and 2 capsules (2,000 mg) in the evening. Take with meals. Active furosemide (Lasix) 40 MG tablet Take 1 tablet (40 mg) by mouth daily as needed. 02/08/2024 Active Latanoprost 0.005 % emulsion Active rosuvastatin (Crestor) 20 MG tablet Take 1 tablet by mouth nightly. 90 tablet 3 07/18/2024 Active Active Problems Problem Noted Date Diagnosed Date Essential (primary) hypertension 06/26/2024 Other specified glaucoma 06/26/2024 H/O prostate cancer 06/26/2024 Dyslipidemia 06/26/2024 Hyperglycemia 06/26/2024 Encounters Date Type Department Care Team Description 07/16/2024 Refill [facility] [address] [place] [address] Randi Rodriguez MD 06/26/2024 10:20 AM EDT Office Visit [facility] [address] [place] [address] Randi Rodriguez MD Hyperglycemia (Primary Dx); Essential (primary) hypertension; Dyslipidemia 06/26/2024 Results Follow-Up [facility] [address] [place] [address] Randi Rodriguez MD 06/26/2024 Travel from Last 3 Months Social History Tobacco Use Types Packs/Day Years [...] on file Sexual Orientation Not on file Last Filed Vital Signs Vital Sign Reading Time Taken Comments Blood Pressure 136/78 06/26/2024 8:56 AM EDT Pulse 84 06/26/2024 8:56 AM EDT Temperature 36.8 C (98.3 F) 06/26/2024 8:56 AM EDT Respiratory Rate 14 06/26/2024 8:56 AM EDT Oxygen Saturation 96% 06/26/2024 8:56 AM EDT Inhaled Oxygen Concentration - - Weight 98.3 kg (216 lb 11.2 oz) 06/26/2024 8:56 AM EDT Height 177.8 cm (5' 10 ) 06/26/2024 8:56 AM EDT Body Mass Index 31.09 06/26/2024 8:56 AM EDT Plan of Treatment Upcoming Encounters Date Type Department Care Team (Late st Contact Info) Description 09/18/2024 9:40 AM EDT Office Visit [facility] [address] [phone] Randi Rodriguez MD [address] [phone] Health Maintenance Due Date Last Done Comments [facility]-Medicare Annual Wellness (AWV) 1940 [facility]-Infant/Child/Adol SDOH Screenings 1940 [facility]- SDOH Screenings 1958 [facility]-Adult SDOH Screenings 1958 [facility]-DTaP,Tdap,and Td Vaccines (1 - Tdap) 09/20/1959 [facility]-RSV Vaccine: 60+ Years or (1 - 1-dose 75+ series) 09/20/2015 [facility]-Pneumococcal Vaccine: 50+ Years (2 of 2 - PPSV23) 02/13/2020 02/12/2019 [id number] Vaccine ( season) 2024 02/08/2024, 01/28/2023, 12/30/2021, Additional history exists [facility]-Depression Screening 06/26/2025 06/26/2024, 06/03 [facility]-Hepatitis A Vaccines Aged Out 08/25/2018, 11/2017 No longer eligible based on patient's age to complete this topic [facility]-Zoster Vaccines Completed 12/17/2022, [facility]-Influenza Vaccine Completed 01/10/2024 [facility]-Obesity Intervention Completed 06/26/2024 HPV Vaccines Aged Out No longer eligi ble based on patient's age to complete this topic [facility]-HIB Vaccines Aged Out No longer e ligible based on patient's age to complete this topic [facility]-IPV Vaccines Aged Out No longer e ligible based on patient's age to complete this topic [facility]-Rotavirus Vaccines Aged Out No lo nger eligible based on patient's age to complete this topic Procedures Procedure Name Priority Date/Time Associated Diagnosis Comments HEMOGLOBIN A1C Routine 06/26/2024 10:50 AM EDT Hyperglycemia from Last 3 Months Results * (ABNORMAL) Hemoglobin A1c (06/26/2024 10:50 AM EDT) Hemoglobin A1c 7.1(H) <5.7 % 06/26/2024 1:43 PM EDT [facility] Blood Venous blood specimen / Unknown Venipuncture / Unknown 06/26/2024 10:50 AM EDT 06/26/2024 10:50 AM EDT Narrative [facility] - 06/26/2024 1:43 PM EDT HA1C Interpretive Data: Diagnosis of Diabetes: Diabetic > or = 6.5% Pre-diabetic 5.7 to 6.4% Non-diabetic < or = 5.6% Glycemic Targets for Type I and Type II Diabetics: Non- Adults <7.0% Adults <6.0% Children and Adolescents <7.5% Source: [place] [employer]. Standards of medical care in diabetes,2017. Diabetes Care.2017:40 (suppl 1):S1-S135. HbA1c assay performed by an ion-exchange chromatography method that is certified traceable to the DCCT. us Randi Rodriguez MD LAB BLOOD ORDERABLES Final Re sult [facility] [address] [place] [address] from Last 3 Months Insurance MEDICARE [facility] Advance Directives Documents on File Type Date Recorded Patient Tub Chucker Expl anation Advance Directives and Living Will 06/26/2024 Care Teams Wire Bender Hand Relationship Specialty Start Date End Date Randi Rodriguez MD [address] [place] [id number] PCP - General Family Medicine 06/26/24
--- OUTSIDE RECORDS SUMMARY | 2024-09-11 21:31 | XMS_ITS | Encounter Summary ---
Author Organization [facility] Address [address] [place] [address] Care Team Providers Care Beef Ribber Name Role Phone Randi Rodriguez MD Primary Care Provider [phone] Encounter Details Date Type Department Care Team (Late st Contact Info) Description 06/26/2024 Results Follow-Up [facility] [address] [place] [address] Randi Rodriguez MD [address] [place] [address] Social History Tobacco Use Types Packs/Day [...] on file documented as of this encounter Functional Status * Over the past 2 weeks, how often have you been bothered by any of the following problems? Question Answer Date of Assessment Author Little interest or pleasure in doing things Not at all 06/26/2024 8:57 AM EDKhushi Campos Feeling down, depressed, or hopeless Not at all 06/03 8:57 AM EDT Khushi Mcclure Patient Health Questionnaire-2 Score 0 06/03 8:57 AM EDKhushi Campos * Question Answer Date of Assessment Author Trouble falling or staying a sleep, or sleeping too much Not at all 06/26/2024 8:57 AM EDKhushi Campos Feeling tired or having little energy Not at all 8:57 AM EDT Khushi Mcclure Poor appetite or overeating Not at all 06/26/2024 8: 57 AM EDKhushi Campos Feeling bad about yourself - or that you are a failure or have let yourself or your family down Not at all 06/26/2024 8:57 AM EDT Azucena Mcclure Trouble concentrating on thi ngs, such as reading the newspaper or watching television Not at all 06/26/2024 8:57 AM EDKhushi Campos Moving or speaking so slowly that other people could have noticed? Or the opposite - being so fidgety or restless that you have been moving around a lot more than usual. Not at all 06/26/2024 8:57 AM EDMaría Elena Campos Thoughts that you would be b olvin off or hurting yourself in some way Not at all 06/26/2024 8:57 AM EDKhushi Campos Patient Health Questionnaire-9 Score 0 06/03 8:57 AM EDKhushi Campos * Calculated C-SSRS Risk Score (Lifetime/Recent) Answer Date of Assessment Author No Risk Indicated 06/26/2024 8:57 AM EDMaría Elena Campos * Question Answer Date of Assessment Author 1. Wish to be (Past 1 Month) No 025 8:57 AM EDKhushi Campos 2. Non-Specific Active Suici meghan Thoughts (Past 1 Month) No 06/26/2024 8:57 AM EDKhushi Campos 6. Suicidal Behavior (Lifetime) No 8:57 AM EDKhushi Campos documented as of this encounter Plan of Treatment Upcoming Encounters Date Type Department Care Team (Late st Contact Info) Description 09/18/2024 9:40 AM EDT Office Visit [facility] [address] [place] [address] Randi Rodriguez [place] [address] documented as of this encounter Visit [...] documented as of this encounter Care Teams Beef Ribber Relationship Specialty Start Date End Date Randi Rodriguez MD [address] [place] [address] PCP - General Family Medicine 06/26/24 documented as of this encounter
[2024-09-11] MEDS: ONDANSETRON 4MG/2ML VIAL 4 MG IV (21:48)
[2024-09-11] MEDS: FAMOTIDINE 20MG/2ML VIAL 20 MG IV (21:48)
[2024-09-11] MEDS: 0.9 % SODIUM CHLORIDE 1000ML 1,000 ML 999 ML IV (21:50)
[2024-09-11] MEDS: SODIUM CHLORIDE 0.9% 10ML VIAL 8 ML IV (21:50)
[2024-09-11 21:52] LABS: Basophils % 0.2 % (0.1-2.0); Eosinophils # 0.1 Kmm3 (0.0-0.4); Eosinophils % 0.6 % (0.1-12.0); Hematocrit 45.6 % (42.0-52.0); Hemoglobin 14.7 g/dL (14.1-18.0); Immature Granulocytes # 0.03 10^3uL; Immature Granulocytes % 0.3 %; Lymphocytes # 0.9 K/mm3 (0.7-4.5); Lymphocytes % 10.2 % (10-50); Mean Corpuscular HGB Conc 32.2 g/dL (31.8-35.4); Mean Corpuscular Hemoglobin 29.1 pg (27.0-31.2); Mean Corpuscular Volume 90.1 fl (80-94); Mean Platelet Volume 11.4 fl (7.4-10.4); Monocytes # 0.8 K/mm3 (0.1-1.0); Monocytes % 8.9 % (1.7-9.3); Neutrophils # 7.1 K/mm3 (1.8-7.8); Neutrophils % 79.8 % (37.0-80.0); Nucleated Red Blood Cells # 0 10^3/uL; Nucleated Red Blood Cells % 0 %; Platelet Count 196 K/mm3 (142-424); Red Blood Count 5.06 M/mm3 (4.60-6.20); Red Cell Distribution Width-SD 46.4 fL; White Blood Count 8.9 K/mm3 (4.8-10.8)
[2024-09-11 21:57] LABS: Alanine Aminotransferase 15 U/L (12-78); Albumin Level 4.2 g/dl (3.5-5.0); Albumin/Globulin Ratio 1.4 (1.1-1.8); Alkaline Phosphatase 55 U/L (38-126); Anion Gap 10.6 mEq/L (5-15); Aspartate Amino Transferase 24 U/L (17-59); Bilirubin,Total 1.1 mg/dl (0.2-1.3); Blood Urea Nitrogen 18 mg/dl (9-20); Calcium 9.1 mg/dl (8.4-10.2); Carbon Dioxide 27 mmol/L (22.0-30.0); Chloride 101 mmol/L (98-107); Creatinine Clearance Estimated 75 mL/min (50-200); Estimated Glomerular Filt Rate 81 ml/min (>60); GFR (African American) 98 ML/MIN (>60); Globulin 3.1 g/dL (1.3-3.2); Glucose 143 mg/dl (74-100); Lipase 41 U/L (23-300); Magnesium 1.7 mg/dl (1.6-2.3); Potassium 3.6 mmoL/L (3.5-5.1); Sodium 135 mmol/L (136-145); Total Protein,Serum 7.3 g/dl (6.3-8.2)
[2024-09-11 22:00] VITALS: BP 182/83; PULSE 65; O2SAT 96
[2024-09-11 22:08] LABS: NT Pro Brain Natriuretic Pep. 858 pg/mL (0-450)
[2024-09-11] MEDS: IOPAMIDOL-370 (76%);100ML BOTTLE 75 ML IV (22:08)
[2024-09-11] MEDS: SODIUM CHLORIDE 0.9% 10ML SYR (RAD ONLY) 10 ML IV (22:08)
[2024-09-11 22:10] LABS: Troponin I < 0.01 ng/ml (0.00-0.034)
[2024-09-11 22:30] VITALS: BP 189/86; PULSE 74; O2SAT 91
--- NOTE | 2024-09-11 22:37 | ECG_ITS ---
APPROVED REPORT Exam: Resting ECG HR:70 bpm ECG Measurements Heart Rate 70 AXES PA 172 P 231 QRSd 125 QRS 19 QT 427 T 72 QTc 448 Conclusion ECTOPIC ATRIAL RHYTHM MODERATE INTRAVENTRICULAR CONDUCTION DELAY [110+ ms QRS DURATION] ABNORMAL RHYTHM ECG UNCONFIRMED REPORT Electronically signed by : RUCHI DAWSON, 09/13/2024 01:10:42
[2024-09-11 23:00] VITALS: BP 176/89; PULSE 77; O2SAT 89
[2024-09-11 23:31] VITALS: BP 193/89; PULSE 75; O2SAT 95
[2024-09-12] VITALS: BP 189/90; PULSE 67; O2SAT 95
[2024-09-12 00:01] VITALS: BP 178/90; PULSE 66; RESP 16; TEMP 36.7; O2SAT 97
== END 2024-09-12 00:07 | disposition home or self-care (01) ==
PROVIDERS: Nurse Practitioner; Emergency Provider Emergency Medicine; PCP Family Medicine
DX: R11.2 Nausea with vomiting, unspecified (principal); N28.1 Cyst of kidney, acquired; I10 Essential (primary) hypertension; Z86.79 Personal history of other diseases of the circulatory system
CPT/HCPCS: 71045; 74177; 80053; 83690; 83735; 83880; 84484; 85025; 93005; 96361; 96374; 96375; 99285; J2405; J7030; Q9967